=== PATIENT | female | born 1960 | race Caucasian/White ===

== ENCOUNTER 2020-02-26 19:41 | Emergency (ER) | payer OTHER ==
[2020-02-26 20:11] VITALS: BP 120/55; PULSE 104
[2020-02-26] MEDS ORDERED: Lactated Ringers 1,000 ML IV ONE (20:20)
--- NOTE | 2020-02-26 20:35 | EDM.PDOC ---
ED HPI GENERAL MEDICAL PROBLEM - General Chief Complaint: Genitourinary Problem Stated Complaint: FEVER Time Seen by Provider: 02/26/20 20:20 Source of Information: Reports: Patient, Old Records, RN History Limitations: Reports: Other (poor historian, no access to records from today's clinic visit.) - History of Present Illness INITIAL COMMENTS - FREE TEXT/NARRATIVE: 60 yo female was seen in the clinic earlier today for malaise. A UA and some blood work were done. Initially the [facility] provider where she was seen thought she had a tick dz and prescribed doxycycline. When she went to the pharmacy the clinic called and asked her to return to the clinic for an IM injection of an unknown antibiotic and her doxycycline was changed to some other bid antibiotic. She was told if she develops a fever to go to the ER. She did subsequently develop a fever so presents now for that. She denies ever having any urinary sx's, no cough, has a minimal LOZA, no sore throat, no rash or GI sx's. Daughter went home and found that the antibiotic is ciprofloxacin. Onset: Today Onset Date: 02/26/20 Duration: Hour(s):, Getting Worse Location: Reports: Generalized Quality: Reports: Ache (mild LOZA, no other pain) Severity: Mild Improves with: Reports: None Worsens with: Reports: None Context: Reports: Other (See HPI) Associated Symptoms: Reports: Fever/Chills, Headaches (mild), Malaise. 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) (unknown antibiotic) Right Flank Pain Score (Numeric/FACES): 4 - Related Data Allergies Allergy/AdvReac Type Severity Reaction Status Date / Time Penicillins Allergy Cannot Verified 02/26/20 19:58 Remember Sulfa (Sulfonamide Allergy Cannot Verified 02/26/20 19:58 Antibiotics) Remember venom-honey bee Allergy Cannot Verified 02/26/20 19:58 [bee venom (honey bee)] Remember Home Meds: Home Meds Albuterol Sulfate [Proair Hfa] 1 - 2 puff IH Q4H PRN 05/11/15 [History] Aspirin [Halfprin] 81 mg PO DAILY 05/11/15 [History] Calcium Carbonate [Calcium] 1,200 mg PO DAILY 05/11/15 [History] Cyanocobalamin (Vitamin B-12) [Vitamin B-12] 2,500 mcg SL DAILY 05/11/15 [History] L.acidoph,Paracasei, B.lactis [Probiotic] 1 tab PO DAILY 05/11/15 [History] Multivitamin [Multi-Vitamin Daily] 1 tab PO DAILY 05/11/15 [History] Fluticasone Propionate [Flonase Allergy Relief] 22 sprays NASBOTH DAILY 02/20/16 [History] Ciprofloxacin HCl [Cipro] 500 mg PO BID 02/26/20 [History] Doxycycline [Vibra-Tabs] 100 mg PO Q12HR #14 tab 02/26/20 [Rx] Past Medical History - Past Health History Medical/Surgical History: Denies Medical/Surgical History HEENT History: Reports: Impaired Vision Cardiovascular History: Reports: Other (See Below) Other Cardiovascular History: palpatations Respiratory History: Reports: Asthma Gastrointestinal History: Reports: Diverticulosis Other Gastrointestinal History: spastic colon Genitourinary History: Reports: None 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 one child, D&C after delivery. Musculoskeletal History: Reports: Arthritis - Infectious Disease History Infectious Disease History: Reports: Chicken Pox - Past Surgical History GI Surgical History: Reports: Cholecystectomy, Hernia Repair/Other Female Surgical History: Reports: D&C Musculoskeletal Surgical History: Reports: Arthroscopic Knee - History Comment History Comment: Tobacco use; quit smoking at 7am on 08-11-1990. Social & Family History - Tobacco Use Smoking Status *Q: Never Smoker Second Hand Smoke Exposure: No - Caffeine Use Caffeine Use: Reports: Soda, Tea - Alcohol Use Days Per Week of Alcohol Use: 3 Number of Drinks Per Day: 3 Total Drinks Per Week: 9 - Recreational Drug Use Recreational Drug Use: No - Living Situation & Occupation Living situation: Reports: Single Occupation: Employed ED ROS GENERAL - Review of Systems Review Of Systems: See Below Constitutional: Reports: Fever, Chills, Malaise HEENT: Reports: No Symptoms Respiratory: Reports: No Symptoms Cardiovascular: Reports: No Symptoms GI/Abdominal: Reports: No Symptoms : Reports: No Symptoms Musculoskeletal: Reports: No Symptoms Skin: Reports: No Symptoms Neurological: Reports: Headache (mild) Psychiatric: Reports: No Symptoms ED EXAM, SEPSIS - Physical Exam Exam: See Below Exam Limited By: No Limitations General Appearance: Alert, WD/WN, No Apparent Distress Eye Exam: Bilateral Eye: Normal Inspection Ears: Normal External Exam, Normal Canal, Hearing Grossly Normal, Normal TMs Nose: Normal Inspection, No Blood Throat/Mouth: Normal Inspection, Normal Lips, Normal Oropharynx, Normal Voice, No Airway Compromise Head: Atraumatic, Normocephalic Neck: Normal Inspection, Supple, Non-Tender. No: Lymphadenopathy (R), Lymphadenopathy (L) Respiratory/Chest: No Respiratory Distress, Lungs Clear, Normal Breath Sounds, No Accessory Muscle Use Cardiovascular: Regular Rate, Rhythm, No Edema, Tachycardia GI/Abdominal Exam: Normal Bowel Sounds, Soft, Non-Tender, No Distention Back: Normal Inspection. No: CVA Tenderness (R), CVA Tenderness (L) Extremities: Normal Inspection, Normal Range of Motion, Non-Tender, No Pedal Edema Neurological: Alert, Oriented, CN II-XII Intact, Normal Cognition, No Motor/Sensory Deficits Psychiatric: Normal Affect, Normal Mood Skin: Warm, Dry, Intact, Normal Color, Rash (has an eliptical 3 cm x 2 cm bullseye type rash behind the R knee. ) Course - Vital Signs Last Recorded V/S: Last Vital Signs Temp 39.1 C H 02/26/20 20:08 Pulse 104 H 02/26/20 20:08 Resp 16 02/26/20 20:08 BP 120/55 L 02/26/20 20:08 Pulse Ox 95 02/26/20 20:08 - Orders/Labs/Meds Orders: Active Orders 24 hr Category Date Time Status CORONAVIRUS COVID-19, ALLIE Routine Lab 02/26/20 21:15 Ordered CULTURE BLOOD [BC] Stat Lab 02/26/20 20:30 Received Labs: Laboratory Tests 02/26/20 02/26/20 02/26/20 Range/Units 20:21 20:30 20:30 WBC 4.8 (4.5-11.0) K/uL RBC 4.74 (3.30-5.50) M/uL Hgb 13.6 (12.0-15.0) g/dL Hct 41.9 (36.0-48.0) % MCV 88 (80-98) fL MCH 29 (27-31) pg MCHC 33 (32-36) % Plt Count 200 (150-400) K/uL Sodium 136 L (140-148) mmol/L Potassium 3.8 (3.6-5.2) mmol/L Chloride 100 (100-108) mmol/L Carbon Dioxide 24 (21-32) mmol/L Anion Gap 15.8 H (5.0-14.0) mmol/L BUN 17 (7-18) mg/dL Creatinine 0.9 (0.6-1.0) mg/dL Est Cr Clr Drug Dosing 60.56 mL/min Estimated GFR (MDRD) > 60 (>60) Glucose 118 H (74-106) mg/dL Lactic Acid (0.4-2.0) mmol/L Calcium 8.5 (8.5-10.1) mg/dL Lactate Dehydrogenase (82-234) U/L C-Reactive Protein (0.0-0.3) mg/dL Urine Color Yellow (YELLOW) Urine Appearance Cloudy A (CLEAR) Urine pH 6.0 (5.0-8.0) Ur Specific [place] >= 1.030 (1.008-1.030) Urine Protein 30 H (NEGATIVE) mg/dL Urine Glucose (UA) Negative (NEGATIVE) mg/dL Urine Ketones 40 H (NEGATIVE) mg/dL Urine Occult Blood Moderate H (NEGATIVE) Urine Nitrite Negative (NEGATIVE) Urine Bilirubin Negative (NEGATIVE) Urine Urobilinogen 1.0 (0.2-1.0) EU/dL Ur Leukocyte Esterase Small H (NEGATIVE) Urine RBC 10-20 H (0-5) Urine WBC 20-30 H (0-5) Ur Epithelial Cells Moderate Amorphous Sediment Moderate Urine Bacteria Many Urine Mucus Few 02/26/20 02/26/20 Range/Units 20:30 20:51 WBC (4.5-11.0) K/uL RBC (3.30-5.50) M/uL Hgb (12.0-15.0) g/dL Hct (36.0-48.0) % MCV (80-98) fL MCH (27-31) pg MCHC (32-36) % Plt Count (150-400) K/uL Sodium (140-148) mmol/L Potassium (3.6-5.2) mmol/L Chloride (100-108) mmol/L Carbon Dioxide (21-32) mmol/L Anion Gap (5.0-14.0) mmol/L BUN (7-18) mg/dL Creatinine (0.6-1.0) mg/dL Est Cr Clr Drug Dosing mL/min Estimated GFR (MDRD) (>60) Glucose (74-106) mg/dL Lactic Acid 0.8 (0.4-2.0) mmol/L Calcium (8.5-10.1) mg/dL Lactate Dehydrogenase 208 (82-234) U/L C-Reactive Protein 3.47 H (0.0-0.3) mg/dL Urine Color (YELLOW) Urine Appearance (CLEAR) Urine pH (5.0-8.0) Ur Specific [place] (1.008-1.030) Urine Protein (NEGATIVE) mg/dL Urine Glucose (UA) (NEGATIVE) mg/dL Urine Ketones (NEGATIVE) mg/dL Urine Occult Blood (NEGATIVE) Urine Nitrite (NEGATIVE) Urine Bilirubin (NEGATIVE) Urine Urobilinogen (0.2-1.0) EU/dL Ur Leukocyte Esterase (NEGATIVE) Urine RBC (0-5) Urine WBC (0-5) Ur Epithelial Cells Amorphous Sediment Urine Bacteria Urine Mucus Meds: Medications Discontinued Medications Generic Name Dose Route Start Last Admin Trade Name Freq PRN Reason Stop Dose Admin Acetaminophen 1,000 mg 02/26/20 20:44 02/26/20 20:49 Tylenol Extra Strength PO 02/26/20 20:45 1,000 mg ONETIME ONE Administration Doxycycline Hyclate 100 mg 02/26/20 21:57 Vibramycin PO 02/26/20 21:58 ONETIME ONE Lactated Ringer's 1,000 mls @ 1,000 mls/hr 02/26/20 20:20 02/26/20 20:39 Ringers, Lactated IV 02/26/20 21:19 1,000 mls/hr BOLUS ONE Administration Departure - Departure Time of Disposition: 22:10 Disposition: Home, Self-Care 01 Condition: Fair Clinical Impression: Febrile illness, acute, Mild dehydration, Pyuria - Discharge Information *PRESCRIPTION DRUG MONITORING PROGRAM REVIEWED*: No *COPY OF PRESCRIPTION DRUG MONITORING REPORT IN PATIENT NATHANIEL: No Prescriptions: Doxycycline [Vibra-Tabs] 100 mg PO Q12HR #14 tab Instructions: Fever, Adult, [id number] Referrals: PCP,None [Primary Care Provider] - Forms: ED Department Discharge Additional Instructions: Until your urine culture and tick test comes back early next week I would like you to take both ciprofloxacin and doxycycline every 12 hrs. Drink more fluids than you have been. Take acetaminophen 1000 mg every 6 hrs for pain/fever control. Recheck in the clinic on Saturday or Saturday. Rest. No work until your fever stays away for at least 12 hrs. Sepsis Event Note (ED) - Evaluation Sepsis Screening Result: Possible Sepsis Risk - Focused Exam Vital Signs: Vital Signs Temp Pulse Resp BP Pulse Ox 02/26/20 20:08 39.1 C H 104 H 16 120/55 L 95 - My Orders Last 24 Hours: My Active Orders 02/26/20 20:30 CULTURE BLOOD [BC] Stat 02/26/20 21:15 CORONAVIRUS COVID-19, ALLIE Routine - Assessment/Plan Last 24 Hours: My Active Orders 02/26/20 20:30 CULTURE BLOOD [BC] Stat 02/26/20 21:15 CORONAVIRUS COVID-19, ALLIE Routine
[2020-02-26] MEDS ORDERED: Acetaminophen 500 MG Tab PO ONE (20:44)
[2020-02-26] MEDS ORDERED: Doxycycline 100 MG Cap PO ONE (21:57)
[2020-03-02 11:13] LABS: LYME IGG/IGM AB <0.91 ISR (0.00-0.90)
[2020-03-02 14:13] LABS: HGE IGG TITER Negative (Neg:<1:64); HGE IGM TITER Negative (Neg:<1:20)
== END 2020-02-26 22:34 | disposition home or self-care (01) ==
LOC: JP.ED 19:41
DX: E86.0 Dehydration (principal); R82.81 Pyuria; J45.909 Unspecified asthma, uncomplicated; Z20.828 Contact with and (suspected) exposure to other viral communicable diseases; M19.90 Unspecified osteoarthritis, unspecified site; Z90.89 Acquired absence of other organs; Z88.0 Allergy status to penicillin; Z88.2 Allergy status to sulfonamides; Z91.030 Bee allergy status; Z79.82 Long term (current) use of aspirin; Z79.899 Other long term (current) drug therapy
CPT/HCPCS: 36415; 80048; 81001; 83605; 83615; 85027; 86140; 86618; 86666; 87040; 87635; 96360; 99283; A9270; J7120; U0002

== ENCOUNTER 2022-03-09 07:55 | Day surgery (SDC) | payer OTHER ==
[2022-03-09] MEDS ORDERED: Scopolamine 1.5 MG Transdermal Patch TOP SCH (08:45)
[2022-03-09] MEDS ORDERED: Dextrose 5%-Lactated Ringers 1,000 ML IV SCH (08:45)
[2022-03-09] MEDS ORDERED: Acetaminophen 500 MG Tab PO ONE (08:45)
[2022-03-09 09:18] LABS: ESTIMATED GFR 98 mL/min (>60)
[2022-03-09] MEDS ORDERED: ceFAZolin 2 GM in Premix Bag 1 BAG IV ONE (09:25)
[2022-03-09] MEDS ORDERED: Albuterol/Ipratropium 3.0-0.5 MG/3 ML Neb Soln NEB ONE (09:45)
[2022-03-09] MEDS ORDERED: Ketamine 17 MG in Sodium Chloride 0.9% 19.83 ML IV SCH (10:15)
[2022-03-09] MEDS ORDERED: Ketamine 500 MG/5 ML MDV IV SCH (10:15)
[2022-03-09] MEDS ORDERED: Propofol 200 MG/20 ML SDV ONE (10:17)
[2022-03-09] MEDS ORDERED: fentaNYL 100 MCG/2 ML SDV ONE ×3 (10:17→12:11)
[2022-03-09] MEDS ORDERED: Dexamethasone 4 MG/ML SDV ONE (10:18)
[2022-03-09] MEDS ORDERED: Neostigmine Methylsulfate 1 MG/ML 5 ML Syringe ONE (10:18)
[2022-03-09] MEDS ORDERED: Ondansetron 4 MG/2 ML SDV ONE (10:18)
[2022-03-09] MEDS ORDERED: Glycopyrrolate 0.2 MG/ML 5 ML MDV ONE (10:18)
[2022-03-09] MEDS ORDERED: Rocuronium 50 MG/5 ML Vial ONE (10:18)
[2022-03-09] MEDS ORDERED: Bupivacaine 0.5%/EPINEPHrine 1:200,000 50 ML MDV ONE (10:24)
[2022-03-09] MEDS ORDERED: Meropenem 500 MG SDV ONE (10:24)
[2022-03-09] MEDS ORDERED: Linezolid 600 MG/300 ML Premix Bag ONE (12:10)
[2022-03-09] MEDS ORDERED: Ondansetron 4 MG/2 ML SDV IVPUSH PRN ×2 (12:40→13:55)
[2022-03-09] MEDS ORDERED: diphenhydrAMINE 50 MG/ML SDV IVPUSH PRN (12:40)
[2022-03-09] MEDS ORDERED: HYDROmorphone/Normal Saline 6 MG/30 ML PCA Vial IV PRN (12:40)
[2022-03-09] MEDS ORDERED: Naloxone 0.4 MG/ML SDV IVPUSH PRN (12:40)
[2022-03-09] MEDS ORDERED: diphenhydrAMINE 25 MG Cap PO PRN (12:40)
[2022-03-09] MEDS ORDERED: oxyCODONE 5 MG Tab PO PRN (13:47)
[2022-03-09] MEDS ORDERED: hydrOXYzine HCL 100 MG/2 ML SDV IM PRN (13:48)
[2022-03-09] MEDS ORDERED: Cyclobenzaprine 10 MG Tab PO PRN (13:49)
[2022-03-09] MEDS ORDERED: Albuterol/Ipratropium 3.0-0.5 MG/3 ML Neb Soln INH PRN (13:51)
[2022-03-09] MEDS: Dextrose 5%-Lactated Ringers 1,000 ML IV SCH (13:53)
[2022-03-09] MEDS: Albuterol/Ipratropium 3.0-0.5 MG/3 ML Neb Soln INH SCH ×2 (14:28→21:03)
[2022-03-09] MEDS: [UNRECOGNIZED DRUG - REMARK] TOP SCH (14:55)
[2022-03-09] MEDS: Ibuprofen 600 MG Tab PO SCH ×2 (14:56→21:03)
[2022-03-09] MEDS: Acetaminophen 500 MG Tab PO SCH ×2 (15:48→22:30)
[2022-03-09] MEDS: ceFAZolin 2 GM in Premix Bag 1 BAG IV SCH (17:58)
[2022-03-10] MEDS: Ibuprofen 600 MG Tab PO SCH ×2 (02:08→08:18)
[2022-03-10] MEDS: ceFAZolin 2 GM in Premix Bag 1 BAG IV SCH ×2 (02:09→09:33)
[2022-03-10] MEDS: Acetaminophen 500 MG Tab PO SCH ×2 (03:46→10:34)
[2022-03-10] MEDS: Dextrose 5%-Lactated Ringers 1,000 ML IV SCH (04:10)
[2022-03-10] MEDS: Albuterol/Ipratropium 3.0-0.5 MG/3 ML Neb Soln INH SCH ×2 (07:15→11:00)
[2022-03-10 08:15] VITALS: BP 95/54; PULSE 65
[2022-03-10] MEDS: [UNRECOGNIZED DRUG - REMARK] TOP SCH (08:20)
[2022-03-10] MEDS ORDERED: Aspirin 81 MG Tab.EC PO SCH (09:00)
[2022-03-10] MEDS ORDERED: Fluticasone NASAL Spray 16 GM Bottle NASBOTH SCH (09:00)
== END 2022-03-10 11:06 | disposition home or self-care (01) ==
LOC: JP.SDS 07:55 → JP.2SS 12:40 → JP.SDS 03-10 11:06
PROVIDERS: ATTEND Surgery
DX: K43.0 Incisional hernia with obstruction, without gangrene (principal); K42.0 Umbilical hernia with obstruction, without gangrene; J45.20 Mild intermittent asthma, uncomplicated; M99.05 Segmental and somatic dysfunction of pelvic region; Z79.1 Long term (current) use of non-steroidal anti-inflammatories (NSAID); Z79.891 Long term (current) use of opiate analgesic; Z79.899 Other long term (current) drug therapy; Z01.812 Encounter for preprocedural laboratory examination; Z20.822 Contact with and (suspected) exposure to COVID-19
CPT/HCPCS: 36415; 49653; 49657; 80053; 81001; 83735; 83880; 84100; 85025; 87086; 87635; 93005; 94640; A9270; J0171; J0690; J1100; J1170; J2020; J2185; J2405; J2704; J2710; J2795; J3010; J3490; J7121; C1781; J7620; U0002

== ENCOUNTER 2022-12-12 00:29 | Emergency (ER) | payer OTHER ==
[2022-12-12 01:49] LABS: ESTIMATED GFR 84 mL/min (>60)
[2022-12-12] MEDS ORDERED: droPERidol 5 MG/2 ML SDV IVPUSH ONE (01:54)
[2022-12-12] MEDS ORDERED: Metoclopramide 10 MG/2 ML SDV IVPUSH ONE (04:28)
[2022-12-12 05:37] VITALS: BP 100/43; PULSE 81
== END 2022-12-12 07:12 | disposition home or self-care (01) ==
LOC: JP.ED 00:29
DX: R10.84 Generalized abdominal pain (principal); R11.2 Nausea with vomiting, unspecified; J45.909 Unspecified asthma, uncomplicated; M19.90 Unspecified osteoarthritis, unspecified site; Z88.0 Allergy status to penicillin; Z88.2 Allergy status to sulfonamides; Z91.030 Bee allergy status; Z79.51 Long term (current) use of inhaled steroids; Z79.82 Long term (current) use of aspirin; Z87.891 Personal history of nicotine dependence
CPT/HCPCS: 36415; 74176; 80053; 83690; 85025; 96374; 99283; 99285-25; J1790

== ENCOUNTER 2023-01-05 17:53 | Emergency (ER) | payer OTHER ==
[2023-01-05 19:15] LABS: BASOPHILS ABSOLUTE AUTO 0.07 K/uL (0.00-0.10); BASOPHILS PERCENT AUTO 0.6 % (0.1-1.3); EOSINOPHILS ABSOLUTE AUTO 0.04 K/uL (0.00-0.40); EOSINOPHILS PERCENT AUTO 0.3 % (0.0-5.4); HEMATOCRIT 37.7 % (34.3-46.0); HEMOGLOBIN 13.1 g/dL (11.2-15.5); IMMATURE GRAN ABSOLUTE AUTO 0.14 K/uL (0.00-0.23); IMMATURE GRAN PERCENT AUTO 1.1 % (0.0-0.7); LYMPHOCYTES ABSOLUTE AUTO 1.37 K/uL (0.8-3.3); LYMPHOCYTES PERCENT AUTO 11.1 % (11.4-47.7); MEAN CORPUSCULAR HEMOGLOBIN 28.9 pg (31.6-35.5); MEAN CORPUSCULAR HGB CONC 34.7 g/dL (31.6-35.5); MONOCYTES ABSOLUTE AUTO 1.46 K/uL (0.20-0.90); MONOCYTES PERCENT AUTO 11.8 % (3.3-12.6); NEUTROPHILS PERCENT AUTO 75.1 % (40.0-78.1); PLATELET COUNT,PLT 322 K/uL (130-375); RED BLOOD CELL COUNT 4.54 M/uL (3.77-5.24); WHITE BLOOD CELL COUNT,WBC 12.4 K/uL (3.2-11.0)
[2023-01-05 19:37] LABS: A/G RATIO 0.7 (1.2-2.2); ALANINE AMINOTRANSFERASE,ALT 15 U/L (12-78); ALBUMIN 2.8 g/dL (3.4-5.0); ALKALINE PHOSPHATASE 82 U/L (46-116); ASPARTATE AMNIOTRANSFERASE,AST 17 U/L (15-37); BILIRUBIN TOTAL 0.7 mg/dL (0.2-1.0); BLOOD UREA NITROGEN,BUN 10 mg/dL (7-18); CALCIUM 8.5 mg/dL (8.5-10.1); CARBON DIOXIDE,CO2 26 mmol/L (21-32); CHLORIDE,CL 94 mmol/L (100-108); CREATININE 0.7 mg/dL (0.6-1.0); EST CRCL DRUG DOSING (CG) 72.88 mL/min; ESTIMATED GFR 98 mL/min (>60); GLUCOSE RANDOM 105 mg/dL (74-106); PROTEIN TOTAL,TP 6.6 g/dL (6.4-8.2); SODIUM,NA 130 mmol/L (140-148)
[2023-01-05 19:38] LABS: ANION GAP 12.5 mmol/L (5.0-14.0); POTASSIUM,K 2.5 mmol/L (3.6-5.2)
[2023-01-05] MEDS ORDERED: Potassium Chloride 20 MEQ Tab.ER PO ONE (19:48)
[2023-01-05 19:52] LABS: SEDIMENTATION RATE MANUAL 34 mm/hr (0-25)
[2023-01-05 20:02] VITALS: BP 107/63; PULSE 93
== END 2023-01-05 20:46 | disposition home or self-care (01) ==
LOC: JP.ED 17:53
DX: R10.30 Lower abdominal pain, unspecified (principal); R19.7 Diarrhea, unspecified; E87.6 Hypokalemia; J45.909 Unspecified asthma, uncomplicated; Z91.030 Bee allergy status; Z79.82 Long term (current) use of aspirin; Z87.891 Personal history of nicotine dependence; Z88.0 Allergy status to penicillin; Z88.2 Allergy status to sulfonamides
CPT/HCPCS: 36415; 80053; 82272; 85025; 85651; 99284; A9270